=== PATIENT | female | born 1975 | race Caucasian/White ===

== ENCOUNTER 2017-11-27 04:45 | Emergency (ER) | payer OTHER ==
[~2017-11-27] VITALS: Ht 182.9 cm; Wt 104.3 kg
[~2017-11-27 04:45] MED LIST: ACETAMINOPHEN-1 EAC1 PO; ALBUTEROL2.5 MG/31 INH; BACTRIM DS TAB1 EACH PO; FLAGYL500 MG PO; HYDROCODON-ACE1 EAC7 PO; HYDROCODONE-APA1 TA1 PO; KEFLEX250 M1 PO; KEFLEX500 M1 PO; MEDROL DOSPAK21 TA1 PO; MEDROLDOSEPACK PO; NAPROSYN500 MG PO; NORCO 5-325 TA1 EACH PO; PREDNISONE 20 M20 MG PO; PROAIR HFA8.5 GM IH; PROAIR HFA8.5 GM INH; PROMETHAZINE D480 ML PO; TESSALON PERLE100 M1 PO; TESSALON PERLE100 MG PO; VENTOLIN HFA 1818 GM INH; ZPAK PO
[2017-11-27] MEDS ORDERED: AZITHROMYCIN 2250 MG PO (06:10)
[2017-11-27] MEDS ORDERED: MEDROLDOSEPACK PO (06:10)
[2017-11-27 06:26] VITALS: BP 153/96
== END 2017-11-27 06:26 | disposition home or self-care (01) ==
LOC: M.ERS 04:45
DX: J45.901 Unspecified asthma with (acute) exacerbation (principal); F17.210 Nicotine dependence, cigarettes, uncomplicated; Z88.5 Allergy status to narcotic agent

== ENCOUNTER 2018-06-26 05:49 | Emergency (ER) | payer OTHER ==
[~2018-06-26] VITALS: Ht 182.9 cm; Wt 108.9 kg
[~2018-06-26 05:49] MED LIST changes: +AZITHROMYCIN 2250 MG PO
[2018-06-26] MEDS ORDERED: FLOVENT HFA 4444 MCG INH (06:12)
[2018-06-26] MEDS ORDERED: ACCUNEB SO1.25 MG/1 INH (06:12)
[2018-06-26] MEDS ORDERED: SUBOXONE 12 MG1 EACH SUBLING (06:14)
[2018-06-26 06:33] LABS: HEMATOCRIT 40.5 % (37.0-47.0); HEMOGLOBIN 13.3 gm/dL (12.0-15.0); MCH 28.5 pg (26.0-34.0); MCHC 32.8 g/dL (28.0-37.0); MCV 86.7 fL (80.0-100.0); RBC 4.68 mil/uL (4.20-5.00); RDW-CV 13.9 % (10.5-14.5); WBC 8.4 thou/uL (4.0-11.0)
[2018-06-26 06:34] LABS: CALCIUM 8.7 mg/dL (8.5-10.1); CREATININE 0.8 mg/dL (0.6-1.3)
[2018-06-26 07:18] LABS: URINE BILIRUBIN NEGATIVE (Negative); URINE BLOOD 2+ (Negative); URINE CLARITY CLEAR; URINE COLOR DARK YELLOW; URINE GLUCOSE-RANDOM NEGATIVE (Negative); URINE KETONES NEGATIVE (Negative); URINE LEUKOCYTES NEGATIVE (Negative); URINE NITRITE NEGATIVE (Negative); URINE PROTEIN 1+ (Negative); URINE SPECIFIC GRAVITY >= 1.030 (1.005-1.030); URINE UROBILINOGEN 0.2 E.U./dl (0.2-1.0)
[2018-06-26 07:27] LABS: HYALINE CASTS 4-10 Moderate /LPF (None Seen); MUCUS >6 Heavy strn/LPF (None Seen); SQUAMOUS >10 Many /LPF (0-3)
[2018-06-26 07:28] LABS: URINE WBC None Seen /HPF (0-5)
[2018-06-26 07:29] LABS: BACTERIA 1-9 Few /HPF (None Seen)
[2018-06-26 07:30] LABS: AMORPHOUS URATES Moderate /LPF (None Seen); URINE RBC 3-10 Few /HPF (0-2); YEAST Present (None Seen)
[2018-06-26 09:27] VITALS: BP 124/79
== END 2018-06-26 09:28 ==
LOC: M.ERS 05:49
PROVIDERS: Emergency Medicine Emergency Medical Services
DX: F41.9 Anxiety disorder, unspecified (principal); K80.20 Calculus of gallbladder without cholecystitis without obstruction; B37.9 Candidiasis, unspecified

== ENCOUNTER 2018-06-27 03:46 | Emergency (ER) | payer OTHER ==
[~2018-06-27] VITALS: Ht 182.9 cm; Wt 104.3 kg
[~2018-06-27 03:46] MED LIST changes: +ACCUNEB SO1.25 MG/1 INH; +FLOVENT HFA 4444 MCG INH; +SUBOXONE 12 MG1 EACH SUBLING
[2018-06-27 04:59] VITALS: BP 144/91
== END 2018-06-27 04:54 ==
LOC: M.ERS 03:46
DX: M54.5 Low back pain (principal); F11.23 Opioid dependence with withdrawal; J45.909 Unspecified asthma, uncomplicated; F41.9 Anxiety disorder, unspecified; I10 Essential (primary) hypertension; F17.210 Nicotine dependence, cigarettes, uncomplicated; Z98.890 Other specified postprocedural states; Z88.5 Allergy status to narcotic agent

== ENCOUNTER 2019-03-27 17:45 | Emergency (ER) | payer OTHER ==
[~2019-03-27] VITALS: Ht 182.9 cm; Wt 108.9 kg
[2019-03-27 19:07] VITALS: BP 130/91
== END 2019-03-27 19:08 ==
LOC: M.ERS 17:45
DX: F41.0 Panic disorder [episodic paroxysmal anxiety] (principal); I10 Essential (primary) hypertension; J45.909 Unspecified asthma, uncomplicated; F17.210 Nicotine dependence, cigarettes, uncomplicated; Z88.5 Allergy status to narcotic agent

== ENCOUNTER 2020-11-26 02:57 | Emergency (ER) | payer OTHER ==
[~2020-11-26] VITALS: Ht 182.9 cm; Wt 108.9 kg
[2020-11-26 03:27] LABS: AMP/METHAMP POSITIVE (Negative); BARBITURATES Negative (Negative); BENZODIAZEPINES Negative (Negative); COCAINE Negative (Negative); METHADONE Negative (Negative); OPIATES Negative (Negative); PCP Negative (Negative); THC POSITIVE (Negative)
[2020-11-26 03:58] LABS: URINE BILIRUBIN NEGATIVE (Negative); URINE BLOOD TRACE (Negative); URINE CLARITY CLEAR; URINE COLOR YELLOW; URINE GLUCOSE-RANDOM NEGATIVE (Negative); URINE KETONES TRACE (Negative); URINE LEUKOCYTES-REFLEX 1+ (Negative); URINE NITRITE-REFLEX NEGATIVE (Negative); URINE PROTEIN NEGATIVE (Negative); URINE SPECIFIC GRAVITY >= 1.030 (1.005-1.030); URINE UROBILINOGEN 0.2 E.U./dl (0.2-1.0)
[2020-11-26 05:09] LABS: CASTS None Seen /LPF (None Seen); SQUAMOUS >10 Many /LPF (0-3)
[2020-11-26 05:11] LABS: URINE RBC 3-10 Few /HPF (0-2)
[2020-11-26 05:12] LABS: BACTERIA-REFLEX >30 Many /HPF (None Seen); CRYSTALS None Seen /LPF (None Seen)
[2020-11-26] MEDS ORDERED: DOXYCYCLINE 10100 MG PO (05:27)
[2020-11-26 05:30] VITALS: BP 130/98
== END 2020-11-26 05:30 | disposition home or self-care (01) ==
LOC: M.ERS 02:57
PROVIDERS: Emergency Medicine
DX: N76.0 Acute vaginitis (principal); N39.0 Urinary tract infection, site not specified; J45.909 Unspecified asthma, uncomplicated; F41.9 Anxiety disorder, unspecified; I10 Essential (primary) hypertension; F17.210 Nicotine dependence, cigarettes, uncomplicated; Z98.51 Tubal ligation status; Z88.5 Allergy status to narcotic agent